=== PATIENT | female | born 1960 ===

== ENCOUNTER 2018-02-01 13:24 | Emergency (ER) | payer BC ==
[~2018-02-01] VITALS: Ht 154.9 cm; Wt 82.5 kg
[~2018-02-01 13:24] MED LIST: ATOR20 PO; CEPH500 PO; CINNAMON; CLOT1TC TOP; CQ10; FOLI1; INSUASPI SC; INSULANI; INSULANPEN SC; LISI5 PO; METF500 PO; MULVITA; NAPR550 PO; NIAC500; OXYACE5T PO; PIOG45; RAMI5; SITA100T2 PO; TRAM50 PO
[2018-02-01 14:05] LABS: BASOPHILS ABSOLUTE AUTO 0.04 K/mm3 (0.00-0.23); BASOPHILS PERCENT AUTO 1 % (0-2); EOSINOPHILS ABSOLUTE AUTO 0.09 K/mm3 (0.00-0.68); EOSINOPHILS PERCENT AUTO 2 % (0-6); Hematocrit 40.2 % (33.0-51.0); Hemoglobin 13.4 g/dL (11.5-16.0); IMMATURE GRAN ABSOLUTE AUTO 0.02 K/mm3 (0.00-0.10); IMMATURE GRAN PERCENT AUTO 0 % (0-1); LYMPHOCYTES ABSOLUTE AUTO 1.82 K/mm3 (0.84-5.20); LYMPHOCYTES PERCENT AUTO 32 % (21-46); MONOCYTES ABSOLUTE AUTO 0.26 K/mm3 (0.16-1.47); MONOCYTES PERCENT AUTO 5 % (4-13); Mean Corpuscular HGB 28.8 pg (26.0-34.0); Mean Corpuscular HGB Conc 33.3 g/dL (31.5-36.5); Mean Corpuscular Volume 86 fL (80-100); Mean Platelet Volume 10.3 fL (9.1-12.4); NEUTROPHILS ABSOLUTE AUTO 3.44 K/mm3 (1.96-9.15); NEUTROPHILS PERCENT AUTO 61 % (41-73); Platelet Count 262 K/mm3 (150-400); RDW Coefficient Variation 13.2 % (11.7-14.2); RDW Standard Deviation 41.1 fL (35.1-46.3); Red Blood Cell Count 4.66 M/mm3 (3.80-5.20); White Blood Cell Count 5.67 K/mm3 (4.00-11.30)
[2018-02-01 14:28] LABS: Alanine Aminotransfer (ALT/SGP 32 U/L (12-78); Albumin, Blood 3.8 g/dL (3.4-5.0); Albumin/Globulin Ratio 1.1 (0.8-1.8); Alk Phos 111 U/L (50-136); Anion Gap 8 mmol/L (6-16); Aspartate Aminotrans (AST/SGOT 20 U/L (12-37); Bilirubin, Total 0.2 mg/dL (0.1-1.0); Blood Urea Nitrogen 16 mg/dL (8-24); Bun/Creatinine Ratio 23.3 (12.0-20.0); CO2, Blood 26 mmol/L (21-32); Calcium, Blood 9.1 mg/dL (8.5-10.1); Chloride, Blood 109 mmol/L (98-108); Creatinine, Blood 0.69 mg/dL (0.40-1.00); Globulin, Blood 3.6 g/dL (2.2-4.0); Glomerular Filtration Rate >60 (60-); Glucose, Blood 130 mg/dL (70-99); Potassium, Blood 4.2 mmol/L (3.5-5.5); Sodium, Blood 143 mmol/L (136-145); Total Protein, Blood 7.4 g/dL (6.4-8.2); Troponin I <0.015 ng/mL (0.000-0.040)
== END 2018-02-01 17:19 | disposition home or self-care (01) ==
LOC: ER 13:24
PROVIDERS: Physician Assistant
DX: R07.9 Chest pain, unspecified (principal); E11.9 Type 2 diabetes mellitus without complications; E78.00 Pure hypercholesterolemia, unspecified; Z79.4 Long term (current) use of insulin; Z79.899 Other long term (current) drug therapy
CPT/HCPCS: 36415; 71046; 80053; 84484; 85025; 93005; 93010; 99284

== ENCOUNTER → 2018-09-16 | Outpatient (CLI) | payer BC ==
[2018-09-18 14:07] LABS: HPV 16 Negative (Negative); HPV 18 Negative (Negative); HPV OTHER HR TYPES Negative (Negative)
== END | disposition home or self-care (01) ==
LOC: LAB SHORT 14:49 → LAB 14:49
PROVIDERS: Obstetrics & Gynecology
DX: Z01.419 Encounter for gynecological examination (general) (routine) without abnormal findings (principal)
CPT/HCPCS: 87624; G0123

== ENCOUNTER → 2020-02-29 | Outpatient (CLI) | payer BC ==
[2020-03-01 12:15] LABS: Candida species (DNA Probe) Negative (NEGATIVE); G. vaginalis (DNA Probe) Positive (NEGATIVE); T. vaginalis (DNA Probe) Negative (NEGATIVE)
== END | disposition home or self-care (01) ==
LOC: LAB 10:45 → LAB SHORT 10:45
PROVIDERS: Obstetrics & Gynecology
DX: L25.9 Unspecified contact dermatitis, unspecified cause (principal)
CPT/HCPCS: 87480; 87510; 87660

== ENCOUNTER 2021-03-24 09:31 | Emergency (ER) | payer BC ==
[~2021-03-24] VITALS: Ht 154.9 cm; Wt 73.9 kg
[2021-03-24] MEDS ORDERED: CEPH500 PO (09:55)
== END 2021-03-24 09:56 | disposition home or self-care (01) ==
LOC: ER 09:31
DX: N61.0 Mastitis without abscess (principal); E11.9 Type 2 diabetes mellitus without complications; Z79.4 Long term (current) use of insulin
CPT/HCPCS: 99282

== ENCOUNTER 2022-05-11 02:01 | Emergency (ER) | payer OTHER, BC ==
[~2022-05-11] VITALS: Ht 154.9 cm; Wt 74.8 kg
[2022-05-11] MEDS ORDERED: OXYC5 PO ×2 (04:49→04:50)
[2022-05-11] MEDS ORDERED: AMOCLA875 PO ×2 (04:49→04:50)
== END 2022-05-11 05:51 | disposition home or self-care (01) ==
LOC: ER 02:01
DX: S61.451A Open bite of right hand, initial encounter (principal); S61.252A Open bite of right middle finger without damage to nail, initial encounter; E11.9 Type 2 diabetes mellitus without complications; E78.5 Hyperlipidemia, unspecified; Z79.899 Other long term (current) drug therapy; Z79.4 Long term (current) use of insulin; W54.0XXA Bitten by dog, initial encounter
CPT/HCPCS: 73130; 96372; 99283-25; A9270; J1885

== ENCOUNTER 2022-05-13 18:48 | Emergency (ER) | payer OTHER, BC ==
[~2022-05-13] VITALS: Ht 154.9 cm; Wt 74.8 kg
[~2022-05-13 18:48] MED LIST changes: +AMOCLA875 PO; +OXYC5 PO
[2022-05-13] MEDS ORDERED: Cleocin HCl150 MG PO (21:46)
== END 2022-05-13 21:48 | disposition home or self-care (01) ==
LOC: ER 18:48
DX: S61.252A Open bite of right middle finger without damage to nail, initial encounter (principal); E11.9 Type 2 diabetes mellitus without complications; W54.0XXA Bitten by dog, initial encounter; Z79.4 Long term (current) use of insulin; Z79.899 Other long term (current) drug therapy
CPT/HCPCS: 36415; 87040; 96372; 99283-25; A9270; J1885

== ENCOUNTER → 2023-06-18 | Outpatient (CLI) | payer BC ==
[~2023-06-18] MED LIST changes: +Cleocin HCl150 MG PO
[2023-06-18 10:23] LABS: Source, Urine Clean Catch
[2023-06-18 13:20] LABS: Appearance, Urine Cloudy (Clear); Bilirubin, Urine Neg (Neg); Blood, Urine 2+ (Neg); Color, Urine Yellow (P-Yellow); Glucose Qualitative, Urine 4+ (Neg); Ketones, Urine Neg (Neg); Leukocyte Esterase, Urine 3+ (Neg); Nitrite, Urine Neg (Neg); Protein, Urine 2+ (Neg); Specific Gravity, Urine 1.015 (1.003-1.022); Urobilinogen, Urine NORM (Normal)
[2023-06-18 13:37] LABS: White Blood Cells, Urine TNTC /hpf (0-5)
[2023-06-18 13:38] LABS: Bacteria Few /hpf; Squamous Epithelial Cells Few /hpf (Few)
== END | disposition home or self-care (01) ==
LOC: LAB 10:19 → LAB SHORT 10:19
PROVIDERS: Obstetrics & Gynecology
DX: N32.81 Overactive bladder (principal)
CPT/HCPCS: 81001; 87086